=== PATIENT | male | born 2000 | race Caucasian/White ===

== ENCOUNTER 2018-11-28 10:13 | Emergency (ER) | payer OTHER ==
[2018-11-28] MEDS ORDERED: ONDANSETRON 4 MG/2 ML VIAL IVP ONE (10:23)
[2018-11-28] MEDS ORDERED: NS 1,000 ML IV ONE ×2 (10:23)
--- NOTE | 2018-11-28 10:26 | EDPHY ---
H & P Stated Complaint: N/V/D Time Seen by Provider: 11/28/18 10:18 HPI/ROS: CHIEF COMPLAINT: Nausea vomiting diarrhea x2 days HISTORY OF PRESENT ILLNESS: 18-year-old immunocompetent male with no history of abdominal surgeries or chronic abdominal pathology complaining of 2 days of intractable nausea vomiting diarrhea, intermittent abdominal cramping. Nonfocal.. Initially went to urgent care referred to the ER for further evaluation.No melena hematochezia. No international travel. No untreated water sources, no recent antibiotic use. No testicle pain. No rash. No URI symptoms. No testicle pain PRIMARY CARE PROVIDER: REVIEW OF SYSTEMS: 10 systems reviewed and negative with the exception of the elements mentioned in the history of present illness PAST MEDICAL & SURGICAL HISTORY: No pertinent medical or surgical history SOCIAL HISTORY: PHYSICAL EXAM (Prior to examination, patient consented to physical exam, hands were washed and my usual and customary physical exam procedures followed) 1) GENERAL: Well-developed, well-nourished, alert and oriented. Appears to be in no acute distress. 2) HEAD: Normocephalic, atraumatic 3) HEENT: Pupils equal, round, reactive to light bilaterally. Sclera anicteric. Nasopharynx, oropharynx, clear, no lesions. Dry mucous membranes. 4) NECK: Full range of motion, no meningeal signs. 5) LUNGS: Clear auscultation bilaterally, no wheezes, no rhonchi, no retractions. 6) HEART: Regular rate and rhythm, no murmur, no heave, no gallop. 7) ABDOMEN: No guarding, no rebound, no focal tenderness, negative McBurney's, negative Dawson's, negative Rovsing's, negative peritoneal sign, I am unable to elicit any abdominal pain on exam 8) MUSCULOSKELETAL: Moving all extremities, no focal areas of tenderness, no obvious trauma. No peripheral edema or discoloration. 9) BACK: No CVA tenderness, no midline vertebral tenderness, no fluctuance, no step-off, no obvious trauma, no visual or palpable abnormality. 10) SKIN: No rash, no petechiae. 11) Psychiatric: Patient is oriented X 3, there is no agitation. DIFFERENTIAL DIAGNOSIS: Student. My differential diagnosis includes, but is not limited to, acute appendicitis, acute cholecystitis, bowel obstruction, acute pancreatitis, testicular torsion, gastritis and urinary tract infection. The patient understands that this diagnosis is provisional and can never be 100 % accurate. This is a partial list of diagnoses considered. These considerations are based on history, physical exam, past history and reassessment. ] - Personal History Current Tetanus/Diphtheria Vaccine: Yes - Medical/Surgical History Hx Asthma: No Hx Chronic Respiratory Disease: No Hx Diabetes: No Hx Cardiac Disease: No Hx Renal Disease: No Hx Cirrhosis: No Hx Alcoholism: No Other PMH: Denies - Social History Smoking Status: Never smoked Constitutional: Initial Vital Signs Heart Rate 69 11/28/18 10:15 Respiratory Rate 18 11/28/18 10:15 O2 Sat (%) 98 11/28/18 10:15 O2 Delivery Mode Room Air Allergies/Adverse Reactions: No Known Allergies Allergy (Unverified 11/28/18 10:17) Home Medications: Medication Instructions Recorded Buspar (*) 11/28/18 Ondansetron Odt [Zofran Odt] 4 mg PO Q4PRN PRN #10 tab 11/28/18 Medical Decision Making ED Course/Re-evaluation: Noon: Re-evaluation. He is feeling "much much better" after IV fluids and Zofran. I re-examined his abdomen at this time which is soft no guarding no rebound no McBurney's point pain. At this time I think the patient can be discharged home as I think that acute surgical abdominal pathology is less than likely in this patient at this time. Given usual customary precautions instructions. He feels comfortable being discharged. Recommend clear liquid diet with advancement to bland food.Care of patient under supervision of secondary supervising physician Dr Berg with whom I discussed case. - Data Points Laboratory Results: Laboratory Results 11/28/18 10:25 11/28/18 10:25 Medications Given: Discontinued Medications Sodium Chloride (Ns) 1,000 mls @ 0 mls/hr IV EDNOW ONE; Wide Open PRN Reason: Protocol Stop: 11/28/18 10:24 Last Admin: 11/28/18 10:28 Dose: 1,000 mls Sodium Chloride (Ns) 1,000 mls @ 0 mls/hr IV EDNOW ONE; Wide Open PRN Reason: Protocol Stop: 11/28/18 10:24 Last Admin: 11/28/18 10:28 Dose: 1,000 mls Ondansetron HCl (Zofran) 4 mg IVP EDNOW ONE Stop: 11/28/18 10:24 Last Admin: 11/28/18 10:28 Dose: 4 mg Departure - Departure Disposition: Home, Routine, Self-Care Clinical Impression: Nausea & vomiting, Volume depletion Condition: Good Instructions: Acute Nausea and Vomiting (ED) Additional Instructions: Seek immediate medical attention if you develop new or worsening symptoms, if you develop fevers, chills, inability to tolerate oral intake or any other symptoms that concerns you. Referrals: [facility] [Clinic] - 1-2 days without fail Prescriptions: Ondansetron Odt [Zofran Odt] 4 mg PO Q4PRN PRN #10 tab PRN Reason: Nausea
[2018-11-28 10:36] LABS: PLATELET COUNT 257 10^3/uL (150-400)
[2018-11-28 12:10] VITALS: BP 129/70
== END 2018-11-28 12:15 | disposition home or self-care (01) ==
DX: R11.2 Nausea with vomiting, unspecified (principal); R19.7 Diarrhea, unspecified; E86.9 Volume depletion, unspecified
CPT/HCPCS: 96374; J2405

== ENCOUNTER 2018-11-30 09:48 | Emergency (ER) | payer OTHER ==
[2018-11-30] MEDS ORDERED: NS 1,000 ML IV ONE ×2 (09:59)
[2018-11-30] MEDS ORDERED: PROMETHAZINE HCL 25 MG/ML INJ IVP ONE (09:59)
[2018-11-30 10:27] LABS: PLATELET COUNT 244 10^3/uL (150-400)
--- NOTE | 2018-11-30 10:28 | EDPHY ---
H & P Stated Complaint: N/V/D, here for same thing on Friday. Source: Patient, Old records Exam Limitations: No limitations - Medical/Surgical History Hx Asthma: No Hx Chronic Respiratory Disease: No Hx Diabetes: No Hx Cardiac Disease: No Hx Renal Disease: No Hx Cirrhosis: No Hx Alcoholism: No Hx HIV/AIDS: No Hx Splenectomy or Spleen Trauma: No Other PMH: Denies - Social History Smoking Status: Never smoked Time Seen by Provider: 11/30/18 09:59 HPI/ROS: HPI: This is a 18-year-old male who presents with Chief Complaint: Periumbilical pain, nausea, vomiting Location: Periumbilical Quality: Cramping pain Duration: 3 days Signs and Symptoms: no fever, + nausea, + vomiting, no hematemesis, no blood in stool, no abdominal bloating, no diarrhea, no back pain, no urinary symptoms, no testicular/groin pain, no indigestion, no chest pain, no shortness of breath Timing: Acute, intermittent episodes Severity: Moderate Context: Patient presents for the 2nd time to the emergency room and 48 hr with complaints of periumbilical cramping pain that is nonradiating in nature accompanied by nausea and 2 episodes of vomiting of stomach contents this morning. Patient reports that yesterday "I felt fine." He ate 3 meals yesterday without any difficulty. He then woke up this morning and had 2 episodes of vomiting so he decided to come to the emergency room for further evaluation. He did not take his Zofran this morning as prescribed. Patient was seen in this emergency room on 11/28/2018 with normal laboratory studies and nonacute abdomen upon exam. His symptoms were relieved with IV fluid hydration and Zofran. He believes that he "may have eaten some things funny on Friday which caused his symptoms." He denies any foreign travel, drinking out a contaminant who wells, recent antibiotic use. Modifying Factors: None Comment: ROS: A comprehensive 10 system review of systems is otherwise negative aside from elements mentioned in the history of present illness. MEDICAL/SURGICAL/SOCIAL HISTORY: Medical history: Major depression Surgical history: Denies Social history: Student at [employer]. Never smoked. Denies drug use. Family history noncontributory. CONSTITUTIONAL: Anxious, extremely well-appearing young adult white male, awake and alert, no obvious distress HEENT: Atraumatic and normocephalic, PERRL, EOMI. Nares patent; no rhinorrhea; no nasal mucosal edema. Tympanic membranes clear. Oropharynx clear, no exudate and moist pink mucosa. Airway patent. No lymphadenopathy. No meningismus. Cardiovascular: Normal S1/S2, regular rate, regular rhythm, without murmur rub or gallop. PULMONARY/CHEST: Symmetrical and nontender. Clear to auscultation bilaterally. Good air movement. No accessory muscle usage. ABDOMEN: Soft, nondistended, mild periumbilical tenderness to deep palpation, no rebound, no guarding, no peritoneal signs, no masses or organomegaly. No CVAT. Hypoactive bowel sounds x4 quadrants EXTREMITIES: 2/2 pulses, strength 5/5, no deformities, no clubbing, no cyanosis or edema. NEUROLOGICAL: no focal neuro deficits. GCS 15. SKIN: Warm and dry, no erythema. no rash. Good capillary refill. (Mali Escoto) Constitutional: Initial Vital Signs Temperature (C) 36.9 C 11/30/18 09:48 Heart Rate 94 11/30/18 09:48 Respiratory Rate 16 11/30/18 09:48 Blood Pressure 103/84 H 11/30/18 09:48 O2 Sat (%) 96 11/30/18 09:48 O2 Delivery Mode Room Air Allergies/Adverse Reactions: No Known Allergies Allergy (Unverified 11/28/18 10:17) Home Medications: Medication Instructions Recorded Buspar (*) 11/28/18 Ondansetron Odt [Zofran Odt] 4 mg PO Q4PRN PRN #10 tab 11/28/18 Ondansetron Odt [Zofran Odt 4 mg 4 mg PO Q4 PRN #12 tab 11/30/18 (*)] Promethazine HCl 25 mg PO Q6 PRN #10 tablet 11/30/18 Medical Decision Making - Diagnostics Imaging Results: Imaging Impressions Abdomen CT 11/30/18 10:08 Impression: 1. Fluid-filled colon and small bowel with trace free fluid in the pelvis, which can be seen with enteritis but is nonspecific. 2. Mildly prominent ileocolic and mesenteric lymph nodes, which could be related to gastroenteritis or mesenteric adenitis. 3. Additional findings as above. Findings discussed with Mali Escoto 11/30/2018 at 11:26 a.m. ED Course/Re-evaluation: Vital signs reviewed and stable upon arrival. No systemic signs. IV access, laboratory studies, urinalysis, CT abdomen and pelvis scan ordered for further evaluation Given 1 L normal saline and IV promethazine 12.5 mg 1122: Laboratory studies reviewed. No signs of leukocytosis/anemia/platelet dysfunction/REYES/elevated LFTs/electrolyte imbalance/pancreatitis. 1129: Called by radiologist, CT abdomen and pelvis scan shows no signs of appendicitis, no diverticulitis, no obstruction. Does show signs of mild gastroenteritis. 1145: Passed p.o. Trial. repeat abdominal exam soft and nontender. Given a school note to patient along with prescription for Phenergan. This patient was seen under the supervision of my secondary supervising physician. I evaluated and cared for this patient independently. (Mali Escoto) I did not see this patient while he was in the emergency department. However his care was discussed with the PA while the patient was in the department. I agree with treatment plan and management (Santos Jean) Differential Diagnosis: Abdominal pain including but not limited to appendicitis, cholecystitis, gastritis and urinary tract infection. (Mali Escoto) - Data Points Laboratory Results: Laboratory Results 11/30/18 10:11 11/30/18 10:11 11/30/18 11/30/18 10:11 10:11 WBC 7.66 10^3/uL 10^3/uL (3.80-9.50) RBC 5.65 10^6/uL 10^6/uL (4.40-6.38) Hgb 15.8 g/dL g/dL (13.7-17.5) Hct 47.0 % % (40.0-51.0) MCV 83.2 fL fL (81.5-99.8) MCH 28.0 pg pg (27.9-34.1) MCHC 33.6 g/dL g/dL (32.4-36.7) RDW 12.9 % % (11.5-15.2) Plt Count 244 10^3/uL 10^3/uL (150-400) MPV 9.8 fL fL (8.7-11.7) Neut % (Auto) 65.5 % % (39.3-74.2) Lymph % (Auto) 23.8 % % (15.0-45.0) [place] % (Auto) 7.8 % % (4.5-13.0) Eos % (Auto) 2.1 % % (0.6-7.6) Baso % (Auto) 0.5 % % (0.3-1.7) Nucleat RBC Rel Count 0.0 % % (0.0-0.2) Absolute Neuts (auto) 5.02 10^3/uL 10^3/uL (1.70-6.50) Absolute Lymphs (auto) 1.82 10^3/uL 10^3/uL (1.00-3.00) Absolute Monos (auto) 0.60 10^3/uL 10^3/uL (0.30-0.80) Absolute Eos (auto) 0.16 10^3/uL 10^3/uL (0.03-0.40) Absolute Basos (auto) 0.04 10^3/uL 10^3/uL (0.02-0.10) Absolute Nucleated RBC 0.00 10^3/uL 10^3/uL (0-0.01) Immature Gran % 0.3 % % (0.0-1.1) Immature Gran # 0.02 10^3/uL 10^3/uL (0.00-0.10) Sodium 141 mEq/L mEq/L (135-145) Potassium 4.0 mEq/L mEq/L (3.5-5.2) Chloride 107 mEq/L mEq/L (97-110) Carbon Dioxide 20 mEq/l L mEq/l (22-31) Anion Gap 14 mEq/L mEq/L (6-14) BUN 9 mg/dL mg/dL (7-23) Creatinine 1.0 mg/dL mg/dL (0.7-1.3) Estimated GFR > 60 Glucose 99 mg/dL mg/dL (70-100) Calcium 9.7 mg/dL mg/dL (8.5-10.4) Total Bilirubin 0.5 mg/dL mg/dL (0.1-1.4) Conjugated Bilirubin 0.2 mg/dL mg/dL (0.0-0.5) Unconjugated Bilirubin 0.3 mg/dL mg/dL (0.0-1.1) AST 20 IU/L IU/L (17-59) ALT 32 IU/L IU/L (21-72) Alkaline Phosphatase 91 IU/L IU/L (38-126) Total Protein 7.6 g/dL g/dL (6.3-8.2) Albumin 4.8 g/dL g/dL (3.5-5.0) Lipase 93 IU/L IU/L (23-300) Medications Given: Discontinued Medications Sodium Chloride (Ns) 1,000 mls @ 0 mls/hr IV EDNOW ONE; Wide Open PRN Reason: Protocol Stop: 11/30/18 10:00 Last Admin: 11/30/18 10:30 Dose: 1,000 mls Sodium Chloride (Ns) 1,000 mls @ 0 mls/hr IV EDNOW ONE; Wide Open PRN Reason: Protocol Stop: 11/30/18 10:00 Last Admin: 11/30/18 10:29 Dose: 1,000 mls Promethazine HCl (Phenergan) 12.5 mg IVP EDNOW ONE Stop: 11/30/18 10:00 Last Admin: 11/30/18 10:29 Dose: 12.5 mg Departure - Departure Disposition: Home, Routine, Self-Care Clinical Impression: Viral gastroenteritis Condition: Good Instructions: Gastroenteritis (ED) Additional Instructions: Consume a minimum of 8-10 glasses of water or electrolyte fluid replacement drinks that include Gatorade, Powerade, Pedialyte. Eat a bland diet for the next 48 hours and then slowly advance as tolerated. Take Zofran 1 tab every 4 hours as needed for nausea, vomiting. Take Phenergan 1 tab every 6 hr as needed for nausea, vomiting not relieved by Zofran. Return to the Emergency Room if symptoms do not resolve in the next 72 hours, you spike a fever > 102 F, or experience intractable abdominal pain/nausea/ vomiting. Referrals: [facility],. [Clinic] - As per Instructions Stand Alone Forms: Work Excuse Prescriptions: Ondansetron Odt [Zofran Odt 4 mg (*)] 4 mg PO Q4 PRN #12 tab PRN Reason: Nausea/Vomiting, Use 1st Promethazine HCl 25 mg PO Q6 PRN #10 tablet PRN Reason: Nausea/Vomiting, Use 2nd
[2018-11-30] MEDS ORDERED: IOPAMIDOL (ISOVUE-300) 100 ML BTL ONE (10:47)
[2018-11-30 11:49] VITALS: BP 124/76
== END 2018-11-30 11:49 | disposition home or self-care (01) ==
DX: A08.4 Viral intestinal infection, unspecified (principal); E86.9 Volume depletion, unspecified
CPT/HCPCS: 96374; J2550; Q9967